=== PATIENT | male | born 1980 | race Caucasian/White ===

== ENCOUNTER 2024-08-31 13:00 | Inpatient (IN) | payer MEDICAID, SELFPAY ==
[2024-08-31 13:04] VITALS: BP 116/89; BP 134/62; PULSE 111; PULSE 125; RESP 16; TEMP 37.1; O2SAT 96; O2SAT 98; BMI 26.6
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
[2024-08-31 13:43] LABS: Appearance Urine Clear; Color Urine Yellow; Glucose Urine UA Negative (Negative); Leukocyte Esterase Urine Negative (Negative); Nitrite Urine Negative (Negative); PH 5.5 (5.0-9.0); Specific Gravity - Urine 1.015 (1.005-1.025); UMIC TRIGGER UACC YES; Urine Blood Negative (Negative); Urine Ketones Negative (Negative); Urine Protein 100 (2+) mg/dL (Neg-Trace)
[2024-08-31 13:58] LABS: Bacteria Urine None Seen (None Seen); RBC Urine 0-2 /HPF (0-2); WBC Urine 0-5 /HPF (0-5)
[2024-08-31 14:19] LABS: MANUAL DIFF FLAG NO
[2024-08-31 14:21] LABS: Basophils Absolute Auto 0.1 X10*3/uL (0.0-0.2); Basophils Percent Auto 0.9 % (0-2); Eosinophils Absolute Auto 0.1 X10*3/uL (0.0-0.4); Eosinophils Percent Auto 1.6 % (0-4); Hematocrit 46.1 % (42.0-52.0); Hemoglobin 16.1 g/dl (14.0-18.0); Imm Gran Abs Auto 0.09 X10*3/uL (0.00-0.03); Imm Gran Pct Auto 1.1 % (0.0-0.4); Lymphocytes Absolute Auto 1.7 X10*3/uL (1.2-4.9); Lymphocytes Percent Auto 21.5 % (20-40); Mean Corpuscular HGB Conc 34.9 g/dl (31.0-36.0); Mean Corpuscular Hemoglobin 32.3 pg (27.0-33.0); Mean Corpuscular Volume 92.6 fL (80.0-98.0); Monocytes Absolute Auto 0.9 X10*3/uL (0.1-1.2); Monocytes Percent Auto 10.7 % (2-11); Neutrophils Absolute Auto 5.1 x10*3/uL (2.0-8.3); Neutrophils Percent Auto 64.2 % (45-73); Platelet Count 351 X10*3/uL (160-400); Red Blood Count 4.98 X10*6/uL (4.60-5.80); Red Cell Distribution Width 11.8 % (11.0-16.0)
[2024-08-31 14:37] LABS: Ethanol 293 mg/dL
[2024-08-31 14:40] LABS: Alanine Aminotransferase 27 U/L (0-40); Alkaline Phosphatase 67 U/L (39-117); Anion Gap 12 (12-20); Aspartate Amino Transferase 43 U/L (5-37); Bilirubin Total 0.2 mg/dL (0.0-1.0); Blood Urea Nitrogen 14 mg/dL (9-16); Calcium 8.9 mg/dL (8.4-10.2); Carbon Dioxide 30 mmol/L (22-29); Chloride 105 mmol/L (96-108); Creatinine Clr Calc Pharmacy 95.7; Estimated Glomerular Filt Rate > 60; Glucose Random 98 mg/dL (60-115); Potassium 4.3 mmol/L (3.3-5.1); Sodium 143 mmol/L (135-145); Total Protein 7.2 g/dL (6.5-8.0)
[2024-08-31 14:42] LABS: Acetaminophen LAB < 3 mcg/mL (<30); Salicylate < 5.0 mg/dL (15-30)
[2024-08-31 15:07] LABS: Amphetamine Screen Urine Not Detected (Not Detect); Barbiturates, Urine Not Detected (Not Detect); Benzodiazepines Screen Urine Not Detected (Not Detect); Buprenorphine Scr Not Detected (Not Detect); Cannabinoid Screen Urine POSITIVE (Not Detect); Cocaine Screen Urine POSITIVE (Not Detect); Fentanyl, urine Not Detected (Not Detect); Methadone Screen, Urine Not Detected (Not Detect); Opiate Screen Urine Not Detected (Not Detect); Oxycodone Screen Urine Not Detected (Not Detect); Phencyclidine Screen Urine Not Detected (Not Detect)
--- NOTE | 2024-08-31 15:43 | PC.NURSE ---
Pt appears to be sleeping, respirations even and unlabored, no apparent distress is noted
[2024-08-31 17:04] VITALS: RESP 16
[2024-08-31 18:26] VITALS: BP 143/88; PULSE 112; RESP 16; TEMP 36.7; O2SAT 95
[2024-08-31 23:45] VITALS: BP 138/96; PULSE 101; RESP 16; TEMP 36.7; O2SAT 97
[2024-09-01] MEDS: Albuterol Sulfate (0.083%) 2.5 MG/3 ML VIAL.NEB INHALE (02:41)
[2024-09-01 02:42] VITALS: PULSE 101; RESP 18; O2SAT 97
--- NOTE | 2024-09-01 09:17 | PC.NURSE ---
Patient reports takes no home medications
--- NOTE | 2024-09-01 09:17 | PHA.MEDREC ---
Pharmacy Consult ? Medication Reconciliation Pharmacy has completed the medication reconciliation. RN CONFIRMED WITH PT THAT HE TAKES NO HOME MEDICATION
--- NOTE | 2024-09-01 11:15 | MHC.RECOVRN ---
While rounding in the ED, POD RN alerted me of patients disposition. Upon assessment, Pt alert and oriented x4, speaking in clear/full sentences, no tremors noted, skin warm and dry. He states he has excessively drinks beer daily for more than 10 years . Patient was unwilling to elaborate more on the extent of his alcohol consumption. Patients CIWA is currently 0, Ethyl Alcohol level upon admission to ED approximately 20 hours ago was 293. Patient denies feeling unwell, states I actually feel good . When asked about withdrawal hx, he acknowledged I don't think I have ever stopped to know . Patient acknowledges the motivation to stop drinking all together , we went over ANTONIO options and support services including the [facility]. I reviewed this with the ED MD, and RN who placed a CIWA q4 in chart to closely monitor pt for signs and symptoms of withdrawal.
[2024-09-01 13:37] VITALS: BP 150/90; PULSE 84; RESP 18; TEMP 36.6; O2SAT 98
--- NOTE | 2024-09-01 13:37 | PC.NURSE ---
Calm and cooperative, reports no pain or discomfort, ate well for lunch. VSS no s/s of withdrawal at this time
[2024-09-01 18:01] VITALS: BP 150/89; PULSE 87; RESP 18; TEMP 36.6; O2SAT 98
--- NOTE | 2024-09-01 18:01 | PC.NURSE ---
Calm and cooperative, vss, no s/s of withdrawal at this time
[2024-09-02 01:30] VITALS: BP 186/103; PULSE 80; RESP 18; TEMP 37.1; O2SAT 99; BMI 22.2
[2024-09-02 06:10] VITALS: BP 173/105; PULSE 85; RESP 18; TEMP 36.5; O2SAT 98
--- NOTE | 2024-09-02 08:19 | ECG_ITS ---
Test Reason : MEDICAL CLERANCE Blood Pressure : / mmHG Vent. Rate : 091 BPM Atrial Rate : 091 BPM P-R Int : 114 ms QRS Dur : 082 ms QT Int : 340 ms P-R-T Axes : 082 052 071 degrees QTc Int : 418 ms Sinus rhythm with marked sinus arrhythmia Otherwise normal ECG No previous ECGs available Referred By: Christiana Paulson Electronically Signed By:BRYAN CORDERO MD
--- NOTE | 2024-09-02 09:27 | PC.NURSE ---
Patient requested to take a shower. Has been set up with necessities. Is now showering.
--- NOTE | 2024-09-02 12:31 | PC.NURSE ---
I asked patient if he used any drugs or alcohol and he states No . Urine toxicology states + for cocaine and THC and alcohol.
[2024-09-02] MEDS: Milk of Magnesia 30 ML ORAL.SUSP PO (13:58)
[2024-09-02] MEDS: Flu Vacc TS2024-25(6mos up)/PF 0.5 ML SYRINGE IM (15:07)
[2024-09-02] MEDS: hydrOXYzine HCL 25 MG TABLET PO (15:14)
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
[2024-09-02 20:00] VITALS: BP 151/97; PULSE 100; TEMP 37; O2SAT 97
[2024-09-02 21:32] VITALS: BP 151/97
[2024-09-02] MEDS: cloNIDine HCL 0.1 MG TABLET PO (21:32)
[2024-09-02] MEDS: traZODone HCL 50 MG TABLET PO (22:56)
[2024-09-03 00:20] VITALS: BP 134/81; PULSE 75; TEMP 36.9; O2SAT 98
[2024-09-03 04:30] VITALS: BP 132/81; PULSE 83; TEMP 36.9; O2SAT 99
[2024-09-03 08:00] VITALS: BP 130/67; PULSE 91; RESP 16; TEMP 36.6; O2SAT 97
[2024-09-03] MEDS: cloNIDine HCL 0.1 MG TABLET PO ×2 (08:25→22:06)
[2024-09-03] MEDS: Thiamine HCL 100 MG TABLET PO (08:25)
[2024-09-03] MEDS: Multivitamin TABLET 1 TAB PO (08:25)
[2024-09-03] MEDS: Folic Acid 1 MG TABLET PO (08:26)
[2024-09-03 08:51] LABS: Estimated Average Glucose 111 mg/dL; Hemoglobin A1C 151.6962 umol/L; Hemoglobin A1c % 5.5 % (<6.0); Total Hemoglobin (HGBA1C) 4160.8316 umol/L
[2024-09-03 09:03] LABS: Cholesterol 205 mg/dL (<200); HDL Cholesterol 63 mg/dL (>40); LDL Cholesterol Calculated 113 mg/dL (<100); Magnesium 2.3 mg/dL (1.6-2.6); Triglycerides 145 mg/dL (<150)
[2024-09-03 09:21] LABS: Free T4 (Free Thyroxine) 1.13 ng/dL (0.71-1.85)
[2024-09-03 09:32] LABS: Folate 7.5 ng/mL (> or = 4.0); Vitamin B12 746 pg/mL (200-900)
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
[2024-09-03] MEDS: hydrOXYzine HCL 25 MG TABLET PO (18:59)
[2024-09-03 20:00] VITALS: BP 157/97; PULSE 101; RESP 18; TEMP 36.4; O2SAT 98
[2024-09-03] MEDS: traZODone HCL 50 MG TABLET PO (22:06)
[2024-09-04] MEDS: hydrOXYzine HCL 25 MG TABLET PO ×2 (01:59→21:13)
[2024-09-04] MEDS: traZODone HCL 50 MG TABLET PO ×2 (01:59→21:13)
[2024-09-04 08:19] VITALS: BP 139/82; PULSE 82; RESP 18; TEMP 36.3; O2SAT 98
[2024-09-04] MEDS: Sertraline HCL 25 MG TABLET PO (08:45)
[2024-09-04] MEDS: Thiamine HCL 100 MG TABLET PO (08:45)
[2024-09-04] MEDS: cloNIDine HCL 0.1 MG TABLET PO ×2 (08:45→21:13)
[2024-09-04] MEDS: Multivitamin TABLET 1 TAB PO (08:46)
[2024-09-04] MEDS: Folic Acid 1 MG TABLET PO (08:46)
--- NOTE | 2024-09-04 15:13 | P.PNPSI_ITS ---
Subjective Subjective Date of Service: 09/04/24 Reason For Visit: Alcohol use disorder, HI Subjective Notes: Conditional Voluntary Healthcare Proxy: No Guardianship: No Medical Problems Affecting Mental Status: No Interim History: Pt seen,discussed with team Denies current sx Pt is not detoxing per team He is tolerating initiation of Sertraline Medication Compliance: Yes Side effects from medications: No Attending Groups: Intermittent Review of Systems Acute medical concerns: No Medical Review of Systems: unchanged Review of Systems Review of Systems Yes all other systems are reviewed and are negative Mental Status Exam Mental Status Exam Patient Appearance: Appropriate Patient Orientation: Person, Place, Time and Situation Level of Consciousness: Alert Patient Behavior: Talkative and Good Eye Contact Mood Description: Constricted Affect Description: Constricted Patient Cognition Impaired: No Ability to Follow Directions: Good Speech Pattern: Spontaneous Speech Memory Description: Episodic Impaired Hallucinations: None Delusions: Not Present Thought Process: Rumination Thought Content: positive for Circumstantial and positive for Perseveration Depressive Symptoms: Increased Anxiety Judgement: Fair Diagnostics Vital Signs (24Hr): Vital Signs - 24 hr 09/03/24 20:00 09/04/24 08:19 Temperature 97.5 F 97.3 F Pulse Rate 101 H 82 Respiratory Rate 18 18 Blood Pressure 157/97 H 139/82 Pulse Oximetry 98 98 Oxygen Delivery Method Room Air Room Air BMI result Body Mass Index 22.2 Labs 08/31/24 14:15 08/31/24 14:15 Labs: Laboratory Results - last 48 hr 09/03/24 08:18 Estimat Average Glucose 111 Hemoglobin A1c % 5.5 Magnesium 2.3 Triglycerides 145 Cholesterol 205 H LDL Cholesterol, Calc 113 H HDL Cholesterol 63 Vitamin B12 746 Folate 7.5 TSH 1.50 Free T4 1.13 Medications Medications Current Medications Acetaminophen (Acetaminophen 325 Mg Tablet) 650 mg PO Q6H PRN PRN Reason: Headache/Pain Mild Scale (1-3) Al Hydroxide/Mg Hydroxide (Magnesium Hydrox/Alum Hydrox 30 Ml Oral.Susp) 30 ml PO Q6H PRN PRN Reason: Heartburn/Nausea Albuterol Sulfate (Albuterol Sulfate 90 Mcg 8 Gm Inhaler) 2 puff INHALE RQ4H PRN PRN Reason: Wheezing Clonidine HCl (Clonidine Hcl 0.1 Mg Tablet) 0.1 mg PO BID [facility]; Protocol Last Admin: 09/04/24 08:45 Dose: 0.1 mg Folic Acid (Folic Acid 1 Mg Tablet) 1 mg PO DAILY [facility] Last Admin: 09/04/24 08:46 Dose: 1 mg Hydroxyzine HCl (Hydroxyzine Hcl 25 Mg Tablet) 25 mg PO Q6H PRN PRN Reason: Anxiety Last Admin: 09/04/24 01:59 Dose: 25 mg Lorazepam (Lorazepam 1 Mg Tablet) 1 mg PO Q2H PRN PRN Reason: ciwa 6-10 Lorazepam (Lorazepam 1 Mg Tablet) 2 mg PO Q2H PRN PRN Reason: ciwa 11+ Magnesium Hydroxide (Milk Of Magnesia 30 Ml Oral.Susp) 30 ml PO DAILY PRN PRN Reason: Constipation Last Admin: 09/02/24 13:58 Dose: 30 ml Multivitamins/Vitamin C (Multivitamin Tablet) 1 tab PO DAILY [facility] Last Admin: 09/04/24 08:46 Dose: 1 tab Nicotine (Nicotine 21 Mg Patch.Td24) 21 mg TRANSDERMA DAILY PRN PRN Reason: nicotine cravings Nicotine Polacrilex (Nicotine Polacrilex 2 Mg Gum) 4 mg BUCCAL Q2H PRN PRN Reason: Nicotine Cravings Olanzapine (Olanzapine 5 Mg Tablet) 5 mg PO Q4H PRN PRN Reason: agitation Sertraline HCl (Sertraline Hcl 25 Mg Tablet) 25 mg PO DAILY [facility] Last Admin: 09/04/24 08:45 Dose: 25 mg Thiamine HCl (Thiamine Hcl 100 Mg Tablet) 100 mg PO DAILY [facility] Last Admin: 09/04/24 08:45 Dose: 100 mg Trazodone HCl (Trazodone Hcl 50 Mg Tablet) 50 mg PO BEDTIME MRX1 PRN PRN Reason: Insomnia Last Admin: 09/04/24 01:59 Dose: 50 mg Allergies Allergies Allergy/AdvReac Type Severity Reaction Status Date / Time No Known Allergies Allergy Verified 08/31/24 13:11 Assessment & Plan Assessment & Plan (1) Alcohol use disorder: Status: Acute Code(s): F10.90 - Alcohol use, unspecified, uncomplicated (2) Cocaine abuse: Status: Acute Code(s): F14.10 - Cocaine abuse, uncomplicated (3) Social anxiety disorder: Status: Acute Code(s): F40.10 - Social phobia, unspecified Plan Alcohol Use Disorder, Cocaine Abuse, Social Anxiety Disorder. Plan: 1. Admit, CV, 15 minute checks 2. CIWA, Lorazepam detox, MVI, Folate, Thiamine. 3. Collateral contact 4. Diagnostics as needed 5. Sertraline 25 mg daily 6. Discharge planning. 09/04/24 Continue plan of care Reason for continued inpatient stay Substantial Risk for: rapid decompensation and med/psych decompensation Time Spent With Patient Time: Total time managing care of this patient today ____ minutes.
[2024-09-04 20:00] VITALS: BP 157/92; PULSE 104; RESP 16; TEMP 36.7; O2SAT 99
[2024-09-04 21:13] VITALS: BP 140/90
[2024-09-05 08:00] VITALS: BP 135/79; PULSE 79; RESP 18; TEMP 36.6; O2SAT 98
[2024-09-05] MEDS: Multivitamin TABLET 1 TAB PO (08:42)
[2024-09-05] MEDS: Sertraline HCL 25 MG TABLET PO (08:42)
[2024-09-05] MEDS: Folic Acid 1 MG TABLET PO (08:42)
[2024-09-05] MEDS: cloNIDine HCL 0.1 MG TABLET PO ×2 (08:42→21:22)
[2024-09-05] MEDS: Thiamine HCL 100 MG TABLET PO (08:43)
--- NOTE | 2024-09-05 13:58 | P.PNPSI_ITS ---
Subjective Subjective Date of Service: 09/05/24 Reason For Visit: Alcohol use disorder, HI Subjective Notes: Conditional Voluntary Healthcare Proxy: No Guardianship: No Medical Problems Affecting Mental Status: No Interim History: Report minimal to no sx of withdrawal. Slept 7 hours but not feeling it was quality rest Discussed sleep/early recovery and interventions CIWA will be discontinued Sertraline will change times to HS. Medication Compliance: Yes Side effects from medications: No Attending Groups: No Review of Systems Acute medical concerns: No Medical Review of Systems: unchanged Review of Systems Review of Systems Denies Mental Status Exam Mental Status Exam Patient Appearance: Appropriate Patient Orientation: Person, Place, Time and Situation Level of Consciousness: Alert Patient Behavior: Talkative and Good Eye Contact Mood Description: Constricted Affect Description: Constricted Patient Cognition Impaired: No Ability to Follow Directions: Good Speech Pattern: Spontaneous Speech Memory Description: Episodic Impaired Hallucinations: None Delusions: Not Present Thought Process: Rumination Thought Content: positive for Circumstantial and positive for Perseveration Depressive Symptoms: Increased Anxiety Judgement: Fair Diagnostics Vital Signs (24Hr): Vital Signs - 24 hr 09/04/24 20:00 09/04/24 21:13 09/05/24 08:00 Temperature 98.0 F 97.8 F Pulse Rate 104 H 79 Respiratory Rate 16 18 Blood Pressure 157/92 H 140/90 H 135/79 Pulse Oximetry 99 98 Oxygen Delivery Method Room Air Room Air BMI result Body Mass Index 22.2 Labs 08/31/24 14:15 08/31/24 14:15 Medications Medications Current Medications Acetaminophen (Acetaminophen 325 Mg Tablet) 650 mg PO Q6H PRN PRN Reason: Headache/Pain Mild Scale (1-3) Al Hydroxide/Mg Hydroxide (Magnesium Hydrox/Alum Hydrox 30 Ml Oral.Susp) 30 ml PO Q6H PRN PRN Reason: Heartburn/Nausea Albuterol Sulfate (Albuterol Sulfate 90 Mcg 8 Gm Inhaler) 2 puff INHALE RQ4H PRN PRN Reason: Wheezing Clonidine HCl (Clonidine Hcl 0.1 Mg Tablet) 0.1 mg PO BID [facility]; Protocol Last Admin: 09/05/24 08:42 Dose: 0.1 mg Folic Acid (Folic Acid 1 Mg Tablet) 1 mg PO DAILY [facility] Last Admin: 09/05/24 08:42 Dose: 1 mg Hydroxyzine HCl (Hydroxyzine Hcl 25 Mg Tablet) 25 mg PO Q6H PRN PRN Reason: Anxiety Last Admin: 09/04/24 21:13 Dose: 25 mg Lorazepam (Lorazepam 1 Mg Tablet) 1 mg PO Q2H PRN PRN Reason: ciwa 6-10 Lorazepam (Lorazepam 1 Mg Tablet) 2 mg PO Q2H PRN PRN Reason: ciwa 11+ Magnesium Hydroxide (Milk Of Magnesia 30 Ml Oral.Susp) 30 ml PO DAILY PRN PRN Reason: Constipation Last Admin: 09/02/24 13:58 Dose: 30 ml Multivitamins/Vitamin C (Multivitamin Tablet) 1 tab PO DAILY [facility] Last Admin: 09/05/24 08:42 Dose: 1 tab Nicotine (Nicotine 21 Mg Patch.Td24) 21 mg TRANSDERMA DAILY PRN PRN Reason: nicotine cravings Nicotine Polacrilex (Nicotine Polacrilex 2 Mg Gum) 4 mg BUCCAL Q2H PRN PRN Reason: Nicotine Cravings Olanzapine (Olanzapine 5 Mg Tablet) 5 mg PO Q4H PRN PRN Reason: agitation Sertraline HCl (Sertraline Hcl 25 Mg Tablet) 25 mg PO DAILY [facility] Last Admin: 09/05/24 08:42 Dose: 25 mg Thiamine HCl (Thiamine Hcl 100 Mg Tablet) 100 mg PO DAILY [facility] Last Admin: 09/05/24 08:43 Dose: 100 mg Trazodone HCl (Trazodone Hcl 50 Mg Tablet) 50 mg PO BEDTIME MRX1 PRN PRN Reason: Insomnia Last Admin: 09/04/24 21:13 Dose: 50 mg Allergies Allergies Allergy/AdvReac Type Severity Reaction Status Date / Time No Known Allergies Allergy Verified 08/31/24 13:11 Assessment & Plan Assessment & Plan (1) Alcohol use disorder: Status: Acute Code(s): F10.90 - Alcohol use, unspecified, uncomplicated (2) Cocaine abuse: Status: Acute Code(s): F14.10 - Cocaine abuse, uncomplicated (3) Social anxiety disorder: Status: Acute Code(s): F40.10 - Social phobia, unspecified Plan Alcohol Use Disorder, Cocaine Abuse, Social Anxiety Disorder. Plan: 1. Admit, CV, 15 minute checks 2. CIWA, Lorazepam detox, MVI, Folate, Thiamine. 3. Collateral contact 4. Diagnostics as needed 5. Sertraline 25 mg daily 6. Discharge planning. 09/04/24 Continue plan of care 09/05/24 SELVIN NUR, Change Sertraline to HS. Pt to trial trazodone 50 mg MR x1 for sleep. Reason for continued inpatient stay Substantial Risk for: med/psych decompensation Time Spent With Patient Time: Total time managing care of this patient today ____ minutes.
[2024-09-05 16:00] VITALS: BP 137/95; PULSE 82; RESP 16; TEMP 36.6; O2SAT 96
[2024-09-05 20:00] VITALS: BP 144/92; PULSE 101; RESP 16; TEMP 36.9; O2SAT 96
[2024-09-05] MEDS: traZODone HCL 50 MG TABLET PO (21:19)
[2024-09-06] VITALS: BP 138/92; PULSE 98; RESP 16
[2024-09-06] MEDS: traZODone HCL 50 MG TABLET PO ×2 (02:28→21:06)
[2024-09-06] MEDS: hydrOXYzine HCL 25 MG TABLET PO (02:28)
[2024-09-06 08:00] VITALS: BP 137/91; PULSE 80; RESP 17; TEMP 36.6; O2SAT 97
[2024-09-06] MEDS: cloNIDine HCL 0.1 MG TABLET PO ×2 (08:46→21:06)
[2024-09-06] MEDS: Multivitamin TABLET 1 TAB PO (08:46)
[2024-09-06] MEDS: Folic Acid 1 MG TABLET PO (08:46)
[2024-09-06] MEDS: Thiamine HCL 100 MG TABLET PO (08:46)
--- NOTE | 2024-09-06 12:02 | HO.PSYCHPN ---
Subjective Subjective Date of Service: 09/06/24 Reason For Visit: Alcohol use disorder, HI Subjective Notes: Conditional Voluntary Healthcare Proxy: No Guardianship: No Medical Problems Affecting Mental Status: No Interim History: Reports poor sleep last night. Discussed options. Pt not wanting to trial other agents, suggested Seroquel. He will let team know if he want to trial this med this evening. No withdrawal sx, tolerating Sertraline Review of Systems Review of Systems insomnia Mental Status Exam Mental Status Exam Patient Appearance: Appropriate Patient Orientation: Person, Place, Time and Situation Level of Consciousness: Alert Patient Behavior: Talkative and Good Eye Contact Mood Description: Constricted Affect Description: Constricted Patient Cognition Impaired: No Ability to Follow Directions: Good Speech Pattern: Spontaneous Speech Memory Description: Episodic Impaired Hallucinations: None Delusions: Not Present Thought Process: Rumination Thought Content: positive for Circumstantial and positive for Perseveration Depressive Symptoms: Increased Anxiety Judgement: Fair Diagnostics Vital Signs (24Hr): Vital Signs - 24 hr 09/05/24 16:00 09/05/24 20:00 09/06/24 00:00 Temperature 97.9 F 98.5 F Pulse Rate 82 101 H 98 Respiratory Rate 16 16 16 Blood Pressure 137/95 H 144/92 H 138/92 H Pulse Oximetry 96 96 Oxygen Delivery Method Room Air Room Air 09/06/24 08:00 Temperature 97.8 F Pulse Rate 80 Respiratory Rate 17 Blood Pressure 137/91 H Pulse Oximetry 97 Oxygen Delivery Method Room Air BMI result Body Mass Index 22.2 Labs 08/31/24 14:15 08/31/24 14:15 Medications Medications Current Medications Acetaminophen (Acetaminophen 325 Mg Tablet) 650 mg PO Q6H PRN PRN Reason: Headache/Pain Mild Scale (1-3) Al Hydroxide/Mg Hydroxide (Magnesium Hydrox/Alum Hydrox 30 Ml Oral.Susp) 30 ml PO Q6H PRN PRN Reason: Heartburn/Nausea Albuterol Sulfate (Albuterol Sulfate 90 Mcg 8 Gm Inhaler) 2 puff INHALE RQ4H PRN PRN Reason: Wheezing Clonidine HCl (Clonidine Hcl 0.1 Mg Tablet) 0.1 mg PO BID [facility]; Protocol Last Admin: 09/06/24 08:46 Dose: 0.1 mg Folic Acid (Folic Acid 1 Mg Tablet) 1 mg PO DAILY [facility] Last Admin: 09/06/24 08:46 Dose: 1 mg Hydroxyzine HCl (Hydroxyzine Hcl 25 Mg Tablet) 25 mg PO Q6H PRN PRN Reason: Anxiety Last Admin: 09/06/24 02:28 Dose: 25 mg Magnesium Hydroxide (Milk Of Magnesia 30 Ml Oral.Susp) 30 ml PO DAILY PRN PRN Reason: Constipation Last Admin: 09/02/24 13:58 Dose: 30 ml Multivitamins/Vitamin C (Multivitamin Tablet) 1 tab PO DAILY [facility] Last Admin: 09/06/24 08:46 Dose: 1 tab Nicotine (Nicotine 21 Mg Patch.Td24) 21 mg TRANSDERMA DAILY PRN PRN Reason: nicotine cravings Nicotine Polacrilex (Nicotine Polacrilex 2 Mg Gum) 4 mg BUCCAL Q2H PRN PRN Reason: Nicotine Cravings Olanzapine (Olanzapine 5 Mg Tablet) 5 mg PO Q4H PRN PRN Reason: agitation Sertraline HCl (Sertraline Hcl 25 Mg Tablet) 25 mg PO BEDTIME [facility] Thiamine HCl (Thiamine Hcl 100 Mg Tablet) 100 mg PO DAILY [facility] Last Admin: 09/06/24 08:46 Dose: 100 mg Trazodone HCl (Trazodone Hcl 50 Mg Tablet) 50 mg PO BEDTIME MRX1 PRN PRN Reason: Insomnia Last Admin: 09/06/24 02:28 Dose: 50 mg Allergies Allergies Allergy/AdvReac Type Severity Reaction Status Date / Time No Known Allergies Allergy Verified 08/31/24 13:11 Assessment & Plan Assessment & Plan (1) Alcohol use disorder: Status: Acute Code(s): F10.90 - Alcohol use, unspecified, uncomplicated (2) Cocaine abuse: Status: Acute Code(s): F14.10 - Cocaine abuse, uncomplicated (3) Social anxiety disorder: Status: Acute Code(s): F40.10 - Social phobia, unspecified Plan Alcohol Use Disorder, Cocaine Abuse, Social Anxiety Disorder. Plan: 1. Admit, CV, 15 minute checks 2. CIWA, Lorazepam detox, MVI, Folate, Thiamine. 3. Collateral contact 4. Diagnostics as needed 5. Sertraline 25 mg daily 6. Discharge planning. 09/04/24 Continue plan of care 09/06/24: Insomnia. Pt will decide if he wants to trial Seroquel. He is undecided as of our meeting today. Reason for continued inpatient stay Substantial Risk for: med/psych decompensation Time Spent With Patient Time: Total time managing care of this patient today ____ minutes.
--- NOTE | 2024-09-06 16:16 | MHC.RECOVRN ---
AUDIT-C Brief Intervention Pt had positive screen for unhealthy alcohol use on admission, subsequently met with t/w to discuss alcohol use and recovery supports/options. This teletypewriter operator met with patient to discuss current alcohol use and concerns related to increased risk of alcohol related problems.? Pt reports 1 liter [place] whiskey daily x a few days. Prior to that pt reports 4-5 22 ounce beers (10% alcohol) daily and up to 9 22 ounce beers on days off of work. Reports daily alcohol use x 6 months. Discussed how alcohol use has impacted health, including negative impact on overall physical wellbeing and mental health. 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 Discussed risk reduction strategies including drinking below the recommended limit. Provided pt with written resources including information on inpatient and outpatient treatment, ANTONIO, harm reduction, and recovery coaching. Pt is not interested in referrals or ANTONIO at this time. Pt plans to return to the gym after discharge and continue with classes at [facility]. Pt provided with t/w contact information if questions or concerns arise. Denies other questions or concerns at this time.?
[2024-09-06 19:41] VITALS: BP 140/91; PULSE 92; TEMP 36.9; O2SAT 98
[2024-09-06] MEDS: Sertraline HCL 25 MG TABLET PO (21:06)
[2024-09-07 07:50] VITALS: BP 146/86; PULSE 80; RESP 18; TEMP 36.7; O2SAT 97
[2024-09-07] MEDS: cloNIDine HCL 0.1 MG TABLET PO ×2 (08:18→20:57)
[2024-09-07] MEDS: Thiamine HCL 100 MG TABLET PO (08:18)
[2024-09-07] MEDS: Multivitamin TABLET 1 TAB PO (08:18)
[2024-09-07] MEDS: Folic Acid 1 MG TABLET PO (08:18)
--- NOTE | 2024-09-07 13:04 | P.PNPSI_ITS ---
Subjective Subjective Date of Service: 09/07/24 Reason For Visit: Alcohol use disorder, HI Subjective Notes: Conditional Voluntary Interim History: Pt reports some difficulty sleeping with trazodone 50mg po qhs prn. He reports his mood is better. He denies SI/HI. No VH/AH. We discussed increasing sertraline to 50mg po daily (will change to daytime instead of bedtime as it may affect sleep). Scheduled trazodone 100mg po qhs in addition to trazodone 50mg po qhs prn. Medication Compliance: Yes Side effects from medications: No Attending Groups: Intermittent Diagnostics Vital Signs (24Hr): Vital Signs - 24 hr 09/06/24 19:41 09/07/24 07:50 Temperature 98.4 F 98.1 F Pulse Rate 92 80 Respiratory Rate 18 Blood Pressure 140/91 H 146/86 H Pulse Oximetry 98 97 Oxygen Delivery Method Room Air Room Air BMI result Body Mass Index 22.2 Labs 08/31/24 14:15 08/31/24 14:15 Medications Medications Current Medications Acetaminophen (Acetaminophen 325 Mg Tablet) 650 mg PO Q6H PRN PRN Reason: Headache/Pain Mild Scale (1-3) Al Hydroxide/Mg Hydroxide (Magnesium Hydrox/Alum Hydrox 30 Ml Oral.Susp) 30 ml PO Q6H PRN PRN Reason: Heartburn/Nausea Albuterol Sulfate (Albuterol Sulfate 90 Mcg 8 Gm Inhaler) 2 puff INHALE RQ4H PRN PRN Reason: Wheezing Clonidine HCl (Clonidine Hcl 0.1 Mg Tablet) 0.1 mg PO BID [facility]; Protocol Last Admin: 09/07/24 08:18 Dose: 0.1 mg Folic Acid (Folic Acid 1 Mg Tablet) 1 mg PO DAILY [facility] Last Admin: 09/07/24 08:18 Dose: 1 mg Hydroxyzine HCl (Hydroxyzine Hcl 25 Mg Tablet) 25 mg PO Q6H PRN PRN Reason: Anxiety Last Admin: 09/06/24 02:28 Dose: 25 mg Magnesium Hydroxide (Milk Of Magnesia 30 Ml Oral.Susp) 30 ml PO DAILY PRN PRN Reason: Constipation Last Admin: 09/02/24 13:58 Dose: 30 ml Multivitamins/Vitamin C (Multivitamin Tablet) 1 tab PO DAILY [facility] Last Admin: 09/07/24 08:18 Dose: 1 tab Nicotine (Nicotine 21 Mg Patch.Td24) 21 mg TRANSDERMA DAILY PRN PRN Reason: nicotine cravings Nicotine Polacrilex (Nicotine Polacrilex 2 Mg Gum) 4 mg BUCCAL Q2H PRN PRN Reason: Nicotine Cravings Olanzapine (Olanzapine 5 Mg Tablet) 5 mg PO Q4H PRN PRN Reason: agitation Sertraline HCl (Sertraline Hcl 25 Mg Tablet) 25 mg PO BEDTIME [facility] Last Admin: 09/06/24 21:06 Dose: 25 mg Thiamine HCl (Thiamine Hcl 100 Mg Tablet) 100 mg PO DAILY [facility] Last Admin: 09/07/24 08:18 Dose: 100 mg Trazodone HCl (Trazodone Hcl 50 Mg Tablet) 50 mg PO BEDTIME MRX1 PRN PRN Reason: Insomnia Last Admin: 09/06/24 21:06 Dose: 50 mg Allergies Allergies Allergy/AdvReac Type Severity Reaction Status Date / Time No Known Allergies Allergy Verified 08/31/24 13:11 Assessment & Plan Assessment & Plan (1) Substance induced mood disorder: Status: Acute Code(s): F19.94 - Other psychoactive substance use, unspecified with psychoactive substance-induced mood disorder (2) Alcohol use disorder: Status: Acute Code(s): F10.90 - Alcohol use, unspecified, uncomplicated (3) Cocaine abuse: Status: Acute Code(s): F14.10 - Cocaine abuse, uncomplicated Plan Alcohol Use Disorder, Cocaine Abuse, Social Anxiety Disorder. Plan: 09/04/24 Continue plan of care 09/07 increase sertraline to 50mg po daily (change to daytime). trazodone 100mg po qhs for sleep. Reason for continued inpatient stay Substantial Risk for: harm to self and harm to others Time Spent With Patient Time: Total time managing care of this patient today ____ minutes.
[2024-09-07] MEDS: Sertraline HCL 50 MG TABLET PO (13:22)
[2024-09-07 19:36] VITALS: BP 134/94; PULSE 85; TEMP 36.7; O2SAT 99
[2024-09-07] MEDS: hydrOXYzine HCL 25 MG TABLET PO (20:57)
[2024-09-07] MEDS: traZODone HCL 100 MG TABLET PO (20:58)
[2024-09-08 07:51] VITALS: BP 154/92; PULSE 89; RESP 18; TEMP 36.9; O2SAT 98
[2024-09-08 08:41] VITALS: BP 125/75
[2024-09-08] MEDS: Thiamine HCL 100 MG TABLET PO (08:41)
[2024-09-08] MEDS: Folic Acid 1 MG TABLET PO (08:41)
[2024-09-08] MEDS: Sertraline HCL 50 MG TABLET PO (08:41)
[2024-09-08] MEDS: cloNIDine HCL 0.1 MG TABLET PO ×2 (08:41→21:20)
[2024-09-08] MEDS: Multivitamin TABLET 1 TAB PO (08:41)
--- NOTE | 2024-09-08 10:01 | P.PNPSI_ITS ---
Subjective Subjective Date of Service: 09/08/24 Reason For Visit: Alcohol use disorder, HI Subjective Notes: Conditional Voluntary Healthcare Proxy: No Guardianship: No Medical Problems Affecting Mental Status: No Interim History: 44yo reports tolerating sertraline better today, yesterday took on empty stomach, today on full stomach after breakfast - no nausea- and last night slept with increase trazodone - so feels more on the way to improvement even though doesn't think notice difference yet with sertraline- Medication Compliance: Yes Side effects from medications: No (brief nausea yesterday) Attending Groups: Intermittent Review of Systems Acute medical concerns: No Medical Review of Systems: unchanged Mental Status Exam Mental Status Exam Patient Appearance: Well Grooomed and Appropriate Patient Orientation: Person, Place, Time and Situation Level of Consciousness: Awake Patient Behavior: Appropriate, Cooperative and Good Eye Contact Mood Description: Anxious Affect Description: Blunted Patient Cognition Impaired: No Speech Pattern: Clear Thought Process: Intact and Goal Oriented Thought Content: positive for Suicidal Ideation (no current plan) Judgement: Fair Diagnostics Vital Signs (24Hr): Vital Signs - 24 hr 09/07/24 19:36 09/08/24 07:51 09/08/24 08:41 Temperature 98.0 F 98.4 F Pulse Rate 85 89 Respiratory Rate 18 Blood Pressure 134/94 H 154/92 H 125/75 Pulse Oximetry 99 98 Oxygen Delivery Method Room Air Room Air BMI result Body Mass Index 22.2 Labs 08/31/24 14:15 08/31/24 14:15 Medications Medications Current Medications Acetaminophen (Acetaminophen 325 Mg Tablet) 650 mg PO Q6H PRN PRN Reason: Headache/Pain Mild Scale (1-3) Al Hydroxide/Mg Hydroxide (Magnesium Hydrox/Alum Hydrox 30 Ml Oral.Susp) 30 ml PO Q6H PRN PRN Reason: Heartburn/Nausea Albuterol Sulfate (Albuterol Sulfate 90 Mcg 8 Gm Inhaler) 2 puff INHALE RQ4H PRN PRN Reason: Wheezing Clonidine HCl (Clonidine Hcl 0.1 Mg Tablet) 0.1 mg PO BID [facility]; Protocol Last Admin: 09/08/24 08:41 Dose: 0.1 mg Folic Acid (Folic Acid 1 Mg Tablet) 1 mg PO DAILY [facility] Last Admin: 09/08/24 08:41 Dose: 1 mg Hydroxyzine HCl (Hydroxyzine Hcl 25 Mg Tablet) 25 mg PO Q6H PRN PRN Reason: Anxiety Last Admin: 09/07/24 20:57 Dose: 25 mg Magnesium Hydroxide (Milk Of Magnesia 30 Ml Oral.Susp) 30 ml PO DAILY PRN PRN Reason: Constipation Last Admin: 09/02/24 13:58 Dose: 30 ml Multivitamins/Vitamin C (Multivitamin Tablet) 1 tab PO DAILY [facility] Last Admin: 09/08/24 08:41 Dose: 1 tab Nicotine (Nicotine 21 Mg Patch.Td24) 21 mg TRANSDERMA DAILY PRN PRN Reason: nicotine cravings Nicotine Polacrilex (Nicotine Polacrilex 2 Mg Gum) 4 mg BUCCAL Q2H PRN PRN Reason: Nicotine Cravings Olanzapine (Olanzapine 5 Mg Tablet) 5 mg PO Q4H PRN PRN Reason: agitation Sertraline HCl (Sertraline Hcl 50 Mg Tablet) 50 mg PO DAILY [facility] Last Admin: 09/08/24 08:41 Dose: 50 mg Thiamine HCl (Thiamine Hcl 100 Mg Tablet) 100 mg PO DAILY [facility] Last Admin: 09/08/24 08:41 Dose: 100 mg Trazodone HCl (Trazodone Hcl 100 Mg Tablet) 100 mg PO BEDTIME [facility] Last Admin: 09/07/24 20:58 Dose: 100 mg Trazodone HCl (Trazodone Hcl 50 Mg Tablet) 50 mg PO BEDTIME PRN PRN Reason: Insomnia Allergies Allergies Allergy/AdvReac Type Severity Reaction Status Date / Time No Known Allergies Allergy Verified 08/31/24 13:11 Assessment & Plan Assessment & Plan (1) Substance induced mood disorder: Status: Acute Code(s): F19.94 - Other psychoactive substance use, unspecified with psychoactive substance-induced mood disorder (2) Alcohol use disorder: Status: Acute Code(s): F10.90 - Alcohol use, unspecified, uncomplicated (3) Cocaine abuse: Status: Acute Code(s): F14.10 - Cocaine abuse, uncomplicated Plan Alcohol Use Disorder, Cocaine Abuse, Social Anxiety Disorder. Plan: 09/04/24 Continue plan of care 09/07 increase sertraline to 50mg po daily (change to daytime). trazodone 100mg po qhs for sleep. 09/08/24 better with yesterdays medication changes- continued inpatient for dc planning to prevent rapid decompensation Patient educated on: medication risk/benefits and therapeutic strategies Informed Consent: understands Reason for continued inpatient stay Substantial Risk for: rapid decompensation Time Spent With Patient Time: Total time managing care of this patient today ____ minutes.
[2024-09-08 20:00] VITALS: BP 132/78; PULSE 91; RESP 16; TEMP 36.8; O2SAT 99
[2024-09-08] MEDS: traZODone HCL 100 MG TABLET PO (21:18)
[2024-09-08 21:20] VITALS: BP 138/92
[2024-09-09 08:22] VITALS: BP 129/97; PULSE 77; RESP 16; TEMP 36.6; O2SAT 99
[2024-09-09] MEDS: cloNIDine HCL 0.1 MG TABLET PO (08:44)
[2024-09-09] MEDS: Folic Acid 1 MG TABLET PO (08:44)
[2024-09-09] MEDS: Thiamine HCL 100 MG TABLET PO (08:44)
[2024-09-09] MEDS: Multivitamin TABLET 1 TAB PO (08:44)
[2024-09-09] MEDS: Sertraline HCL 50 MG TABLET PO (08:44)
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
== END 2024-09-09 12:05 | disposition home or self-care (01) | DRG 774 ==
LOC: HO.ED 09-02 12:27 → HO.PM5 09-02 12:34
PROVIDERS: Admitting Provider Clinical Nurse Specialist Psychiatric/Mental Health, Adult; Emergency Provider Student in an Organized Health Care Education/Training Program; Visit Provider Clinical Nurse Specialist Psychiatric/Mental Health, Adult
DX: F19.94 Other psychoactive substance use, unspecified with psychoactive substance-induced mood disorder (principal); F14.10 Cocaine abuse, uncomplicated; R45.850 Homicidal ideations; F10.929 Alcohol use, unspecified with intoxication, unspecified; F40.10 Social phobia, unspecified; Y90.8 Blood alcohol level of 240 mg/100 ml or more; Z23 Encounter for immunization; Z79.899 Other long term (current) drug therapy
CPT/HCPCS: 36415; 80053; 80061; 80143; 80179; 80307; 81001; 82607; 82746; 83036; 83735; 84439; 84443; 85025; 90656; 93005; 94640; 99285; S9485

== ENCOUNTER → 2024-09-02 08:19 | Outpatient (BNV) | payer MEDICAID, SELFPAY | PROVIDERS: Admitting Provider Clinical Nurse Specialist Psychiatric/Mental Health, Adult; Emergency Provider Student in an Organized Health Care Education/Training Program; Visit Provider Internal Medicine Cardiovascular Disease | DX: Z01.818 Encounter for other preprocedural examination (principal) | CPT/HCPCS: 93010 ==

== ENCOUNTER → 2024-09-02 11:55 | Outpatient (BNV) | payer OTHER, SELFPAY | PROVIDERS: Admitting Provider Clinical Nurse Specialist Psychiatric/Mental Health, Adult; Emergency Provider Student in an Organized Health Care Education/Training Program; Visit Provider Clinical Nurse Specialist Psychiatric/Mental Health, Adult | DX: F14.10 Cocaine abuse, uncomplicated (principal); F19.94 Other psychoactive substance use, unspecified with psychoactive substance-induced mood disorder; F10.90 Alcohol use, unspecified, uncomplicated | CPT/HCPCS: 99231; 99232 ==